=== PATIENT | female | born 1995 | race Caucasian/White ===

== ENCOUNTER → 2021-11-10 | Outpatient (CLI) | payer OTHER ==
[~2021-11-10] MED LIST: ACETAMINOPHEN; CEPH250SUA PO; DIPHENHYDRAMINE; LORA10ER PO; SULTRIDS PO
== END | disposition home or self-care (01) ==
LOC: LAB 12:01 → LAB SHORT 12:01
DX: O09.893 Supervision of other high risk pregnancies, third trimester (principal)
CPT/HCPCS: 87081; 87150

== ENCOUNTER → 2022-12-21 | Outpatient (CLI) | payer OTHER ==
[~2022-12-21] MED LIST changes: +PRENATAL TABLE1 EAC2
[2022-12-21 15:53] LABS: Candida species (DNA Probe) Positive (NEGATIVE); G. vaginalis (DNA Probe) Negative (NEGATIVE); T. vaginalis (DNA Probe) Negative (NEGATIVE)
[2022-12-23 02:11] LABS: CHLAMYDIA TRACHOMATIS, NAA Negative (Negative)
== END | disposition home or self-care (01) ==
LOC: LAB 13:20 → LAB SHORT 13:20
PROVIDERS: Family Medicine
DX: N89.8 Other specified noninflammatory disorders of vagina (principal)
CPT/HCPCS: 87480; 87491; 87510; 87591; 87660